=== PATIENT | male | born 1995 | race Hispanic/Latino ===

== ENCOUNTER 2016-04-19 05:27 | Emergency (ER) | payer SELFPAY ==
[2016-04-19 06:37] LABS: ANION GAP 8 MEQ/L (8-16); BLOOD UREA NITROGEN 14 MG/DL (7-18); CALCIUM LEVEL 8.6 MG/DL (8.5-10.1); CARBON DIOXIDE LEVEL 28 MEQ/L (21-32); CHLORIDE LEVEL 106 MEQ/L (98-107); CREATININE FOR GFR 1.04 MG/DL (0.70-1.30); GLOMERULAR FILTRATION RATE > 60.0 (>60); GLUCOSE, FASTING 98 MG/DL (70-105); POTASSIUM SERUM 3.9 MEQ/L (3.5-5.1); SODIUM LEVEL 142 MEQ/L (136-145)
--- NOTE | 2016-04-19 07:50 | REPUSA ---
CLINICAL HISTORY: Abdominal pain. TECHNIQUE: Multiple axial, sagittal and coronal CT images were obtained through the abdomen and pelvi s without administration of oral or IV contrast material. COMMENTS: The liver is of uniform attenuation without mass or defect. There is no intra or extrahepatic biliary ductal dilatation. The spleen is normal. The gallbladder is within normal limits. The pancreas is of normal contour and attenuation characteristics. There is no evidence of adrenal mass. The kidneys are normal in size, shape and configuration. No renal or ureteral calculi are identified. There is no hydroureter or hydronephrosis. There is no evidence for appendicitis. There is no bowel wall thickening. No evidence for small or la rge bowel obstruction. There is no evidence of abdominal ascites or lymphadenopathy. There is no evidence of intrinsic or extrinsic bladder mass. There is no pelvic ascites or lymphadeno pat. Mild diffuse thickening of the bladder. Images of the lung bases show no evidence of pleural or parenchymal mass. There are no pleural effusi ons. The bony structures are free of lytic or blastic lesions. Multilevel degenerative changes are seen in volving the thoracolumbar spine. Scattered calcifications are seen involving the aorta and major branches compatible with atherosclero sis. IMPRESSION: Mild diffuse thickening of the bladder. Findings are suggestive of cystitis. Thank you for your kind referral of this patient.
[2016-04-19] MEDS ORDERED: cefTRIAXone SOD 250 MG VIAL (J0696) As Ordered ONE (08:14)
[2016-04-19] MEDS ORDERED: DOXYCYCLINE HYCLATE 100 MG TAB As Ordered ONE (08:15)
--- NOTE | 2016-04-19 08:44 | EDDOCDS ---
Nurse's Notes [facility] Name: Gene Gallegos Age: 20 yrs Sex: Male : 1995 Arrival Date: 04/19/2016 Time: 05:27 Bed 17 Private MD: Diagnosis: Acute prostatitis Presentation: 04/19 05:31 Presenting complaint: Patient states: per pt for the past few weeks now he has had the tm5 urge to use the bathroom, he has noted blood in his urine also, has had lower back pain also. Adult Sepsis Screening: The patient does not have new or worsening altered mentation. Patient's respiratory rate is less than 22. Systolic blood pressure is greater than 100. Patient has a qSOFA score of 0- Negative Sepsis Screen. Suicide/Homicide risk assessment- the patient denies having any suicidal and/or homicidal ideations and does not present with any other emotional, behavioral or mental health complaints. 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 Transition of care: patient was not received from another setting of care. 05:31 Acuity: TRANG Level 3 tm5 05:31 Method Of Arrival: Walkin/Carried/Asstd tm5 Triage Assessment: 05:33 General: Appears in no apparent distress, Behavior is appropriate for age, cooperative. tm5 Pain: Denies pain. Pt Declines HIV testing. Neurological: No deficits noted. Respiratory: Airway is patent Respiratory effort is even, unlabored, Respiratory pattern is regular, symmetrical. Derm: Skin is pink, warm & dry. Historical: - Allergies: no known allergies; - Home Meds: 1. none - PMHx: none; - The history from nurses notes was reviewed: and I agree with what is documented. - Social history: Smoking status: Patient uses tobacco products, current every day smoker. No barriers to communication noted, The patient speaks fluent Yakut. - Family history: Not pertinent. - : The pt / caregiver states he / she is not on anticoagulants. Home medication list is obtained from the patient. - Hospitalizations: : No recent hospitalization is reported. - Exposure Risk Screening:: None identified. - Immunization history:: All immunizations up-to-date. - Social history:: the patient smokes cigarettes the patient drinks alcohol. Screenin:35 Screening information is obtained from the patient. Fall risk: No risks identified. tm5 Assistance ADL's: requires no assistance with activities of daily living. Abuse/DV Screen: The patient / caregiver reports he/she is: not in a situation that causes fear, pain or injury. Nutritional screening: No deficits noted. Advance Directives: Currently, there is no health care proxy. There is no active DNR order. home support is adequate. Assessment: 05:56 General: Appears in no apparent distress, comfortable, Behavior is cooperative. Pain: mlc Denies pain. Neurological: Level of Consciousness is awake, alert, obeys commands, Oriented to person, place, time. Respiratory: Airway is patent Respiratory effort is even, unlabored, Respiratory pattern is regular. GI: Abdomen is flat, Bowel sounds present X 4 quads. Abd is soft X 4 quads Denies nausea. : Reports urgency since 3 weeks pt reports itching "internally" between testicles and shaft, pt denies discharge/rash. 07:20 General: Appears in no apparent distress, comfortable, Behavior is appropriate for age, ml6 cooperative. Pain: Denies pain. Neurological: No deficits noted. Level of Consciousness is awake, alert, Oriented to person, place, time. Cardiovascular: No deficits noted. Capillary refill < 3 seconds is brisk in bilateral fingers toes. Respiratory: No deficits noted. Airway is patent Respiratory effort is even, unlabored, Respiratory pattern is regular, symmetrical. GI: Abdomen is flat, non- distended Bowel sounds present X 4 quads. Abd is soft and non tender X 4 quads. : Reports urgency. 08:20 Reassessment: Patient appears in no apparent distress at this time. Patient denies pain ml6 at this time. Patient states feeling better. Patient states symptoms have improved. 08:41 General: Appears in no apparent distress, comfortable, Behavior is appropriate for age, ml6 cooperative. Pain: Denies pain. Neurological: No deficits noted. Level of Consciousness is awake, alert, Oriented to person, place, time. Cardiovascular: No deficits noted. Capillary refill < 3 seconds is brisk in bilateral fingers toes. Respiratory: No deficits noted. Airway is patent Respiratory effort is even, unlabored, Respiratory pattern is regular, symmetrical. GI: No deficits noted. Vital Signs: 05:33 BP 133 / 59; Pulse 85; Resp 18; Temp 97.8(O); Pulse Ox 100% ; Weight 72.57 kg; Height 6 tm5 ft. 0 in. (182.88 cm); Pain 0/10; 08:41 BP 128 / 61; Pulse 81; Resp 16; Temp 98.1(O); Pulse Ox 98% on R/A; Pain 0/10; ml6 05:33 Body Mass Index 21.70 (72.57 kg, 182.88 cm) tm5 Vitals: 05:33 Log In Time: April 19, 2016 at 05:34. tm5 06:14 HIV Screen Result: Negative. [facility] [place] ED Course: 05:29 Patient visited by Tori Cornell Reg. hs2 05:29 Patient moved to Waiting hs2 05:33 Triage Initiated tm5 05:33 Family accompanied patient. tm5 05:35 Tereza Pal RN is Primary Nurse. tm5 05:35 Patient moved to 17 tm5 05:55 GC & Chlamydia Amplification Sent. mlc 05:55 Urine Culture Sent. mlc 05:55 Urinalysis Sent. [facility] [place] 05:58 Patient visited by Tereza Pal RN. [facility] 06:04 Basic Metabolic Profile Sent. [facility] [place] 06:05 Inserted saline lock: 20 gauge in right forearm and blood collected. The patient mlc tolerated the procedure well. 06:15 Patient visited by Tereza Pal RN. mlc 06:58 Heri Leavitt, PETER is Primary Nurse. ml6 06:59 Patient visited by Heri Leavitt RN. ml6 06:59 Pola Kaur MD is Attending Physician. pc 07:18 Patient visited by Pola Kaur MD. pc 07:20 The patient / caregiver is instructed regarding the plan of care and ED course. ml6 07:54 Patient visited by Heri Leavitt RN. ml6 08:27 [facility] Payment Agreement was scanned into [employer] and attached to record. lg 08:33 CT ABD & PELVIS: No Contrast Returned. EDMS 08:42 Discontinued IV bleeding controlled, pressure dressing applied, No redness/swelling at ml6 site. No procedures done that require assistance. Administered Medications: 08:08 Drug: cefTRIAXone 250 mg [ceftriaxone 250 mg solution for injection (250 mg)] Route: ml6 IM; Site: left vastus lateralis; 08:43 Follow up: Response: No Adverse Reaction ml6 08:10 Drug: Doxycycline 100 mg [doxycycline hyclate 100 mg tablet (1 tabs)] Route: PO; ml6 Order Results: Lab Order: Urinalysis; SPEC'M 04/19/16 05:39 Test: APPEARANCE, URINE; Value: HAZY; Range: CLEAR; Status: F Test: COLOR, URINE; Value: YELLOW; Range: YELLOW; Status: F Test: PH,URINE; Value: 5.0; Range: 5.0-9.0; Units: UNITS; Status: F Test: SPECIFIC GRAVITY URINE AUTO; Value: 1.019; Range: 1.002-1.035; Status: F Test: PROTEIN, URINE AUTO; Value: NEGATIVE; Range: NEGATIVE; Units: mg/dL; Status: F Test: GLUCOSE, URINE (UA) AUTO; Value: NEGATIVE; Range: NEGATIVE; Units: mg/dL; Status: F Test: KETONE, URINE AUTO; Value: TRACE; Range: NEGATIVE; Abnormal: Above high normal; Units: mg/dL; Status: F Test: UROBILINOGEN, URINE AUTO; Value: 0.2; Range: 0.0-2.0; Units: mg/dL; Status: F Test: BILIRUBIN, URINE AUTO; Value: NEGATIVE; Range: NEGATIVE; Status: F Test: NITRITE, URINE AUTO; Value: NEGATIVE; Range: NEGATIVE; Status: F Test: LEUKOCYTE ESTERASE, URINE AUTO; Value: 2+; Range: NEGATIVE; Abnormal: Above high normal; Status: F Test: BLOOD, URINE BLOOD; Value: NEGATIVE; Range: NEGATIVE; Status: F Test: WBC, URINE AUTO; Value: 158; Range: 0-3; Abnormal: Above high normal; Units: /HPF; Status: F Test: RBC, URINE AUTO; Value: 7; Range: 0-3; Abnormal: Above high normal; Units: /HPF; Status: F Test: BACTERIA, URINE AUTO; Value: NEGATIVE; Range: NEGATIVE; Status: F Test: SQUAMOUS EPITHELIAL CELL UR AU; Value: 0; Range: 0-6; Units: /HPF; Status: F Test: MUCUS, URINE; Value: SMALL; Range: NEGATIVE; Status: F Test: HYALINE CAST, URINE AUTO; Value: 0; Range: 0-1; Units: /LPF; Status: F Lab Order: Basic Metabolic Profile; SPEC'M 04/19/16 06:03 Test: GLUCOSE, FASTING; Value: 98; Range: 70-105; Units: MG/DL; Status: F Test: BLOOD UREA NITROGEN; Value: 14; Range: 7-18; Units: MG/DL; Status: F Test: CREATININE FOR GFR; Value: 1.04; Range: 0.70-1.30; Units: MG/DL; Status: F Test: GLOMERULAR FILTRATION RATE; Value: > 60.0; Range: >60; Status: F Test: SODIUM LEVEL; Value: 142; Range: 136-145; Units: MEQ/L; Status: F Test: POTASSIUM SERUM; Value: 3.9; Range: 3.5-5.1; Units: MEQ/L; Status: F Test: CHLORIDE LEVEL; Value: 106; Range: 98-107; Units: MEQ/L; Status: F Test: CARBON DIOXIDE LEVEL; Value: 28; Range: 21-32; Units: MEQ/L; Status: F Test: ANION GAP; Value: 8; Range: 8-16; Units: MEQ/L; Status: F Test: CALCIUM LEVEL; Value: 8.6; Range: 8.5-10.1; Units: MG/DL; Status: F Test Note: ; Units are mL/min/1.73 m2 Chronic Kidney Disease Staging per NKF: Stage I & II GFR >=60 Normal to Mildly Decreased Stage III GFR 30-59 Moderately Decreased Stage IV GFR 15-29 Severely Decreased Stage V GFR <15 Very Little GFR Left ESRD GFR <15 on MANAGER BUILD[employer] Radiology Order: CT ABD & PELVIS: No Contrast Test: CT ABD & PELVIS: No Contrast REASON FOR EXAMINATION: pyelonephritis; ; CLINICAL HISTORY: Abdominal pain.; TECHNIQUE: Multiple axial, sagittal and coronal CT images were obtained through the abdomen and pelvi; s without administration of oral or IV contrast material.; COMMENTS:; The liver is of uniform attenuation without mass or defect. There is no intra or extrahepatic biliary; ductal dilatation. The spleen is normal. The gallbladder is within normal limits. The pancreas is of; normal contour and attenuation characteristics. There is no evidence of adrenal mass.; The kidneys are normal in size, shape and configuration. No renal or ureteral calculi are identified.; There is no hydroureter or hydronephrosis.; There is no evidence for appendicitis. There is no bowel wall thickening. No evidence for small or la; rge bowel obstruction. There is no evidence of abdominal ascites or lymphadenopathy.; There is no evidence of intrinsic or extrinsic bladder mass. There is no pelvic ascites or lymphadeno; pat.; Mild diffuse thickening of the bladder.; Images of the lung bases show no evidence of pleural or parenchymal mass. There are no pleural effusi; ons.; The bony structures are free of lytic or blastic lesions. Multilevel degenerative changes are seen in; volving the thoracolumbar spine.; Scattered calcifications are seen involving the aorta and major branches compatible with atherosclero; sis.; IMPRESSION:; Mild diffuse thickening of the bladder. Findings are suggestive of cystitis.; Thank you for your kind referral of this patient.; ; Outcome: 07:33 CT Study completed. Property :Personal belongings accompany Pt. ml6 08:06 Discharge ordered by Provider. pc 08:42 Discharge Assessment: patient administered narcotics - no. The following High Risk ml6 Discharge criteria are identified: None. Discharged to home ambulatory, with significant other. Condition: improved. Discharge instructions given to patient, Instructed on discharge instructions, follow up and referral plans. medication usage, safe sex practices, Demonstrated understanding of instructions, medications, Pt was receptive of discharge instructions/ teaching. Prescriptions given X 1. 08:43 Patient left the ED. ml6 Signatures: Dispatcher [employer] EDMS Pola Kaur MD MD pc Ganter, LoriLee, Reg Reg lg Heri Leavitt, RN RN ml6 Tereza Pal RN RN [facility] [place] Tori Cornell, Reg Reg hs2 Sara HernándezRN RN tm5 MTDD
--- NOTE | 2016-04-19 08:44 | EDDOCDS ---
Physician Documentation [facility] Name: Gene Gallegos Age: 20 yrs Sex: Male : 1995 Arrival Date: 04/19/2016 Time: 05:27 Bed 17 Private MD: Disposition: 04/19 08:01 Critical Care: Critical care not applicable. pc Disposition: 04/19/16 08:06 Discharged to Home/Self Care. Impression: Acute prostatitis. - Condition is Stable. - Discharge Instructions: Prostatitis. - Prescriptions for Doxycycline Monohydrate 100 mg Oral Tablet - take 1 tablet by ORAL route every 12 hours for 28 days; 56 tablet. - Medication Reconciliation, Local Pharmacy Hours form. - Follow up: Private Physician; When: Upon returning to your home town; Reason: Recheck today's complaints, Continuance of care. - Problem is an ongoing problem. - Symptoms are unchanged. HPI: 08:01 This 20 yrs old Male presents to ER via Walkin/Carried/Asstd with complaints of Urinary pc Problem. 08:01 The history is obtained from the patient. He has had dysuria for 2-3 weeks, without pc urethral discharge, hematuria, fevers or chills. He has low back pain at times but not daily or consistently. At their worst, the symptoms were mild. In the emergency department, the symptoms are unchanged. The patient has not experienced similar symptoms in the past. The patient has not recently seen a physician. Historical: - Allergies: no known allergies; - Home Meds: 1. none - PMHx: none; - The history from nurses notes was reviewed: and I agree with what is documented. - Social history: Smoking status: Patient uses tobacco products, current every day smoker. No barriers to communication noted, The patient speaks fluent Amharic. - Family history: Not pertinent. - : The pt / caregiver states he / she is not on anticoagulants. Home medication list is obtained from the patient. - Hospitalizations: : No recent hospitalization is reported. - Exposure Risk Screening:: None identified. - Immunization history:: All immunizations up-to-date. - Social history:: the patient smokes cigarettes the patient drinks alcohol. ROS: 08:01 All systems are negative except as listed. pc Exam: 08:01 General Appearance: no acute distress, alert. pc 08:01 Respiratory: no respiratory distress, normal breath sounds. 08:01 CVS: regular pulse rate, regular rhythm, normal S1 and S2, no murmurs, strong peripheral pulses. 08:01 Abdomen: soft, non-tender, no organomegaly, normal bowel sounds. 08:01 Abdomen: no masses appreciated, no hernias palpated with/without gravity or Valsalva Rectal exam: prostate is tender. 08:01 Back: normal inspection. 08:01 : bladder is non-distended, non-tender. 08:01 Extremities: The extremities have a grossly normal appearance. Vital Signs: 05:33 BP 133 / 59; Pulse 85; Resp 18; Temp 97.8(O); Pulse Ox 100% ; Weight 72.57 kg / 159.99 tm5 lbs; Height 6 ft. 0 in. (182.88 cm); Pain 0/10; 08:41 BP 128 / 61; Pulse 81; Resp 16; Temp 98.1(O); Pulse Ox 98% on R/A; Pain 0/10; ml6 05:33 Body Mass Index 21.70 (72.57 kg, 182.88 cm) tm5 MDM: 05:44 IV Saline Lock ordered. fg 05:44 Urine Culture Ordered. EDMS 05:45 Urinalysis Ordered. EDMS 05:45 Basic Metabolic Profile Ordered. EDMS 05:55 GC & Chlamydia Amplification Ordered. EDMS 05:55 HIV Screen, Nursing ordered. mlc 07:00 Urinalysis Reviewed. pc 07:00 Basic Metabolic Profile Reviewed. pc 07:02 CT ABD & PELVIS: No Contrast Ordered. EDMS 07:40 Financial registration complete. lg 08:01 Differential Diagnosis: dysuria r/o STD/prostatitis/UTI. Plan: labs, CT. Data reviewed: old medical records, vital signs, nurses notes, lab test results, all radiology studies and available results. Test interpretation: LAB - all labs as ordered have been reviewed, interpreted and considered in the overall management of the clinical presentation; interpreted by Radiologist and personally reviewed, Abdomen/Pelvis CT; cystitis suspected. The patient has been re-examined and re-evaluated. There is no appreciated change of the patient's symptoms at this time, or expected emergently . Disposition: The historical points, examination findings, and any diagnostic results supporting the provided diagnosis, were discussed with the patient or legal guardian. The need for outpatient follow up with the provider listed on their discharge instructions was discussed. They were encouraged to return to [facility], or the nearest ED, if symptoms worsen/persist, or for any other questions/concerns. 08:06 cefTRIAXone 250 mg IM once ordered. 08:06 Doxycycline 100 mg PO once ordered. 08:27 [facility] Payment Agreement was scanned into [employer] and attached to record. lg Administered Medications: 08:08 Drug: cefTRIAXone 250 mg [ceftriaxone 250 mg solution for injection (250 mg)] Route: ml6 IM; Site: left vastus lateralis; 08:43 Follow up: Response: No Adverse Reaction ml6 08:10 Drug: Doxycycline 100 mg [doxycycline hyclate 100 mg tablet (1 tabs)] Route: PO; ml6 Signatures: Dispatcher [employer] EDMS Pola Kaur MD MD pc Kevin King, Reg Reg lg Heri Leavitt RN RN ml6 Tereza Pal RN RN [facility] Carina Gastelum MD MD Sara Hernández RN RN tm5 The chart was reviewed and I authenticate all verbal orders and agree with the evaluation and treatment provided.Attachments: 08:27 [facility] Payment Agreement lg MTDD
--- NOTE | 2016-04-21 09:43 | EDDOCDS ---
Nurse's Notes [facility] Name: Gene Gallegos Age: 20 yrs Sex: Male : 1995 Arrival Date: 04/19/2016 Time: 05:27 Bed 17 Private MD: Diagnosis: Acute prostatitis Presentation: 04/19 05:31 Presenting complaint: Patient states: per pt for the past few weeks now he has had the tm5 urge to use the bathroom, he has noted blood in his urine also, has had lower back pain also. Adult Sepsis Screening: The patient does not have new or worsening altered mentation. Patient's respiratory rate is less than 22. Systolic blood pressure is greater than 100. Patient has a qSOFA score of 0- Negative Sepsis Screen. Suicide/Homicide risk assessment- the patient denies having any suicidal and/or homicidal ideations and does not present with any other emotional, behavioral or mental health complaints. Status: Patient is not a service loss control consultant or dependent. Transition of care: patient was not received from another setting of care. 05:31 Acuity: TRANG Level 3 tm5 05:31 Method Of Arrival: Walkin/Carried/Asstd tm5 Triage Assessment: 05:33 General: Appears in no apparent distress, Behavior is appropriate for age, cooperative. tm5 Pain: Denies pain. Pt Declines HIV testing. Neurological: No deficits noted. Respiratory: Airway is patent Respiratory effort is even, unlabored, Respiratory pattern is regular, symmetrical. Derm: Skin is pink, warm & dry. Historical: - Allergies: no known allergies; - Home Meds: 1. none - PMHx: none; - The history from nurses notes was reviewed: and I agree with what is documented. - Social history: Smoking status: Patient uses tobacco products, current every day smoker. No barriers to communication noted, The patient speaks fluent [place]. - Family history: Not pertinent. - : The pt / caregiver states he / she is not on anticoagulants. Home medication list is obtained from the patient. - Hospitalizations: : No recent hospitalization is reported. - Exposure Risk Screening:: None identified. - Immunization history:: All immunizations up-to-date. - Social history:: the patient smokes cigarettes the patient drinks alcohol. Screenin:35 Screening information is obtained from the patient. Fall risk: No risks identified. tm5 Assistance ADL's: requires no assistance with activities of daily living. Abuse/DV Screen: The patient / caregiver reports he/she is: not in a situation that causes fear, pain or injury. Nutritional screening: No deficits noted. Advance Directives: Currently, there is no health care proxy. There is no active DNR order. home support is adequate. Assessment: 05:56 General: Appears in no apparent distress, comfortable, Behavior is cooperative. Pain: mlc Denies pain. Neurological: Level of Consciousness is awake, alert, obeys commands, Oriented to person, place, time. Respiratory: Airway is patent Respiratory effort is even, unlabored, Respiratory pattern is regular. GI: Abdomen is flat, Bowel sounds present X 4 quads. Abd is soft X 4 quads Denies nausea. : Reports urgency since 3 weeks pt reports itching "internally" between testicles and shaft, pt denies discharge/rash. 07:20 General: Appears in no apparent distress, comfortable, Behavior is appropriate for age, ml6 cooperative. Pain: Denies pain. Neurological: No deficits noted. Level of Consciousness is awake, alert, Oriented to person, place, time. Cardiovascular: No deficits noted. Capillary refill < 3 seconds is brisk in bilateral fingers toes. Respiratory: No deficits noted. Airway is patent Respiratory effort is even, unlabored, Respiratory pattern is regular, symmetrical. GI: Abdomen is flat, non- distended Bowel sounds present X 4 quads. Abd is soft and non tender X 4 quads. : Reports urgency. 08:20 Reassessment: Patient appears in no apparent distress at this time. Patient denies pain ml6 at this time. Patient states feeling better. Patient states symptoms have improved. 08:41 General: Appears in no apparent distress, comfortable, Behavior is appropriate for age, ml6 cooperative. Pain: Denies pain. Neurological: No deficits noted. Level of Consciousness is awake, alert, Oriented to person, place, time. Cardiovascular: No deficits noted. Capillary refill < 3 seconds is brisk in bilateral fingers toes. Respiratory: No deficits noted. Airway is patent Respiratory effort is even, unlabored, Respiratory pattern is regular, symmetrical. GI: No deficits noted. Vital Signs: 05:33 BP 133 / 59; Pulse 85; Resp 18; Temp 97.8(O); Pulse Ox 100% ; Weight 72.57 kg; Height 6 tm5 ft. 0 in. (182.88 cm); Pain 0/10; 08:41 BP 128 / 61; Pulse 81; Resp 16; Temp 98.1(O); Pulse Ox 98% on R/A; Pain 0/10; ml6 05:33 Body Mass Index 21.70 (72.57 kg, 182.88 cm) tm5 Vitals: 05:33 Log In Time: April 19, 2016 at 05:34. tm5 06:14 HIV Screen Result: Negative. [facility] ED Course: 05:29 Patient visited by Tori Cornell Reg. hs2 05:29 Patient moved to Waiting hs2 05:33 Triage Initiated tm5 05:33 Family accompanied patient. tm5 05:35 Tereza Pal RN is Primary Nurse. tm5 05:35 Patient moved to 17 tm5 05:55 GC & Chlamydia Amplification Sent. mlc 05:55 Urine Culture Sent. mlc 05:55 Urinalysis Sent. [facility] 05:58 Patient visited by Tereza Pal RN. [facility] 06:04 Basic Metabolic Profile Sent. [facility] 06:05 Inserted saline lock: 20 gauge in right forearm and blood collected. The patient mlc tolerated the procedure well. 06:15 Patient visited by Tereza Pal RN. mlc 06:58 Heri Leavitt, PETER is Primary Nurse. ml6 06:59 Patient visited by Heri Leavitt RN. ml6 06:59 Pola Kaur MD is Attending Physician. pc 07:18 Patient visited by Pola Kaur MD. pc 07:20 The patient / caregiver is instructed regarding the plan of care and ED course. ml6 07:54 Patient visited by Heri Leavitt RN. ml6 08:27 [facility] Payment Agreement was scanned into [employer] and attached to record. lg 08:33 CT ABD & PELVIS: No Contrast Returned. EDMS 08:42 Discontinued IV bleeding controlled, pressure dressing applied, No redness/swelling at ml6 site. No procedures done that require assistance. Administered Medications: 08:08 Drug: cefTRIAXone 250 mg [ceftriaxone 250 mg solution for injection (250 mg)] Route: ml6 IM; Site: left vastus lateralis; 08:43 Follow up: Response: No Adverse Reaction ml6 08:10 Drug: Doxycycline 100 mg [doxycycline hyclate 100 mg tablet (1 tabs)] Route: PO; ml6 Order Results: Lab Order: Urinalysis; SPEC'M 04/19/16 05:39 Test: APPEARANCE, URINE; Value: HAZY; Range: CLEAR; Status: F Test: COLOR, URINE; Value: YELLOW; Range: YELLOW; Status: F Test: PH,URINE; Value: 5.0; Range: 5.0-9.0; Units: UNITS; Status: F Test: SPECIFIC GRAVITY URINE AUTO; Value: 1.019; Range: 1.002-1.035; Status: F Test: PROTEIN, URINE AUTO; Value: NEGATIVE; Range: NEGATIVE; Units: mg/dL; Status: F Test: GLUCOSE, URINE (UA) AUTO; Value: NEGATIVE; Range: NEGATIVE; Units: mg/dL; Status: F Test: KETONE, URINE AUTO; Value: TRACE; Range: NEGATIVE; Abnormal: Above high normal; Units: mg/dL; Status: F Test: UROBILINOGEN, URINE AUTO; Value: 0.2; Range: 0.0-2.0; Units: mg/dL; Status: F Test: BILIRUBIN, URINE AUTO; Value: NEGATIVE; Range: NEGATIVE; Status: F Test: NITRITE, URINE AUTO; Value: NEGATIVE; Range: NEGATIVE; Status: F Test: LEUKOCYTE ESTERASE, URINE AUTO; Value: 2+; Range: NEGATIVE; Abnormal: Above high normal; Status: F Test: BLOOD, URINE BLOOD; Value: NEGATIVE; Range: NEGATIVE; Status: F Test: WBC, URINE AUTO; Value: 158; Range: 0-3; Abnormal: Above high normal; Units: /HPF; Status: F Test: RBC, URINE AUTO; Value: 7; Range: 0-3; Abnormal: Above high normal; Units: /HPF; Status: F Test: BACTERIA, URINE AUTO; Value: NEGATIVE; Range: NEGATIVE; Status: F Test: SQUAMOUS EPITHELIAL CELL UR AU; Value: 0; Range: 0-6; Units: /HPF; Status: F Test: MUCUS, URINE; Value: SMALL; Range: NEGATIVE; Status: F Test: HYALINE CAST, URINE AUTO; Value: 0; Range: 0-1; Units: /LPF; Status: F Lab Order: Urine Culture; SPEC'M 04/19/16 05:39 Test: URINE CULTURE; Value: <EXTERNAL COMMENT eCWMed> FULL REPORT IN LAB NOTES (eCW and Medent).; Status: F Test: URINE CULTURE; Value: URINE CULTURE RESULT NO GROWTH; Status: F Lab Order: Basic Metabolic Profile; SPEC'M 04/19/16 06:03 Test: GLUCOSE, FASTING; Value: 98; Range: 70-105; Units: MG/DL; Status: F Test: BLOOD UREA NITROGEN; Value: 14; Range: 7-18; Units: MG/DL; Status: F Test: CREATININE FOR GFR; Value: 1.04; Range: 0.70-1.30; Units: MG/DL; Status: F Test: GLOMERULAR FILTRATION RATE; Value: > 60.0; Range: >60; Status: F Test: SODIUM LEVEL; Value: 142; Range: 136-145; Units: MEQ/L; Status: F Test: POTASSIUM SERUM; Value: 3.9; Range: 3.5-5.1; Units: MEQ/L; Status: F Test: CHLORIDE LEVEL; Value: 106; Range: 98-107; Units: MEQ/L; Status: F Test: CARBON DIOXIDE LEVEL; Value: 28; Range: 21-32; Units: MEQ/L; Status: F Test: ANION GAP; Value: 8; Range: 8-16; Units: MEQ/L; Status: F Test: CALCIUM LEVEL; Value: 8.6; Range: 8.5-10.1; Units: MG/DL; Status: F Test Note: ; Units are mL/min/1.73 m2 Chronic Kidney Disease Staging per NKF: Stage I & II GFR >=60 Normal to Mildly Decreased Stage III GFR 30-59 Moderately Decreased Stage IV GFR 15-29 Severely Decreased Stage V GFR <15 Very Little GFR Left ESRD GFR <15 on 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 Lab Order: GC & Chlamydia Amplification; SPEC'M 04/19/16 05:39 Test: CHLAMYDIA DNA AMPLIFICATION; Value: POSITIVE; Range: NEGATIVE; Abnormal: Above high normal; Status: F Test: GC DNA AMPLIFICATION; Value: NEGATIVE; Range: NEGATIVE; Status: F Radiology Order: CT ABD & PELVIS: No Contrast Test: CT ABD & PELVIS: No Contrast REASON FOR EXAMINATION: pyelonephritis; ; CLINICAL HISTORY: Abdominal pain.; TECHNIQUE: Multiple axial, sagittal and coronal CT images were obtained through the abdomen and pelvi; s without administration of oral or IV contrast material.; COMMENTS:; The liver is of uniform attenuation without mass or defect. There is no intra or extrahepatic biliary; ductal dilatation. The spleen is normal. The gallbladder is within normal limits. The pancreas is of; normal contour and attenuation characteristics. There is no evidence of adrenal mass.; The kidneys are normal in size, shape and configuration. No renal or ureteral calculi are identified.; There is no hydroureter or hydronephrosis.; There is no evidence for appendicitis. There is no bowel wall thickening. No evidence for small or la; rge bowel obstruction. There is no evidence of abdominal ascites or lymphadenopathy.; There is no evidence of intrinsic or extrinsic bladder mass. There is no pelvic ascites or lymphadeno; pat.; Mild diffuse thickening of the bladder.; Images of the lung bases show no evidence of pleural or parenchymal mass. There are no pleural effusi; ons.; The bony structures are free of lytic or blastic lesions. Multilevel degenerative changes are seen in; volving the thoracolumbar spine.; Scattered calcifications are seen involving the aorta and major branches compatible with atherosclero; sis.; IMPRESSION:; Mild diffuse thickening of the bladder. Findings are suggestive of cystitis.; Thank you for your kind referral of this patient.; ; Outcome: 07:33 CT Study completed. Property :Personal belongings accompany Pt. ml6 08:06 Discharge ordered by Provider. pc 08:42 Discharge Assessment: patient administered narcotics - no. The following High Risk ml6 Discharge criteria are identified: None. Discharged to home ambulatory, with significant other. Condition: improved. Discharge instructions given to patient, Instructed on discharge instructions, follow up and referral plans. medication usage, safe sex practices, Demonstrated understanding of instructions, medications, Pt was receptive of discharge instructions/ teaching. Prescriptions given X 1. 08:43 Patient left the ED. ml6 Signatures: Dispatcher [employer] EDMS Pola Kaur MD MD pc Kevin King, Reg Reg lg Heri Leavitt RN RN ml6 Tereza Pal RN RN [facility] Tori Cornell, Reg Reg hs2 Sara Hernández RN RN tm5 Chart Complete MTDD
--- NOTE | 2016-04-21 09:43 | EDDOCDS ---
Physician Documentation [facility] Name: Gene Gallegos Age: 20 yrs Sex: Male : 1995 Arrival Date: 04/19/2016 Time: 05:27 Bed 17 Private MD: Disposition: 04/19 08:01 Critical Care: Critical care not applicable. pc Disposition: 04/19/16 08:06 Discharged to Home/Self Care. Impression: Acute prostatitis. - Condition is Stable. - Discharge Instructions: Prostatitis. - Prescriptions for Doxycycline Monohydrate 100 mg Oral Tablet - take 1 tablet by ORAL route every 12 hours for 28 days; 56 tablet. - Medication Reconciliation, Local Pharmacy Hours form. - Follow up: Private Physician; When: Upon returning to your home town; Reason: Recheck today's complaints, Continuance of care. - Problem is an ongoing problem. - Symptoms are unchanged. HPI: 08:01 This 20 yrs old Male presents to ER via Walkin/Carried/Asstd with complaints of Urinary pc Problem. 08:01 The history is obtained from the patient. He has had dysuria for 2-3 weeks, without pc urethral discharge, hematuria, fevers or chills. He has low back pain at times but not daily or consistently. At their worst, the symptoms were mild. In the emergency department, the symptoms are unchanged. The patient has not experienced similar symptoms in the past. The patient has not recently seen a physician. Historical: - Allergies: no known allergies; - Home Meds: 1. none - PMHx: none; - The history from nurses notes was reviewed: and I agree with what is documented. - Social history: Smoking status: Patient uses tobacco products, current every day smoker. No barriers to communication noted, The patient speaks fluent Serbian. - Family history: Not pertinent. - : The pt / caregiver states he / she is not on anticoagulants. Home medication list is obtained from the patient. - Hospitalizations: : No recent hospitalization is reported. - Exposure Risk Screening:: None identified. - Immunization history:: All immunizations up-to-date. - Social history:: the patient smokes cigarettes the patient drinks alcohol. ROS: 08:01 All systems are negative except as listed. pc Exam: 08:01 General Appearance: no acute distress, alert. pc 08:01 Respiratory: no respiratory distress, normal breath sounds. 08:01 CVS: regular pulse rate, regular rhythm, normal S1 and S2, no murmurs, strong peripheral pulses. 08:01 Abdomen: soft, non-tender, no organomegaly, normal bowel sounds. 08:01 Abdomen: no masses appreciated, no hernias palpated with/without gravity or Valsalva Rectal exam: prostate is tender. 08:01 Back: normal inspection. 08:01 : bladder is non-distended, non-tender. 08:01 Extremities: The extremities have a grossly normal appearance. Vital Signs: 05:33 BP 133 / 59; Pulse 85; Resp 18; Temp 97.8(O); Pulse Ox 100% ; Weight 72.57 kg / 159.99 tm5 lbs; Height 6 ft. 0 in. (182.88 cm); Pain 0/10; 08:41 BP 128 / 61; Pulse 81; Resp 16; Temp 98.1(O); Pulse Ox 98% on R/A; Pain 0/10; ml6 05:33 Body Mass Index 21.70 (72.57 kg, 182.88 cm) tm5 MDM: 05:44 IV Saline Lock ordered. fg 05:44 Urine Culture Ordered. EDMS 05:45 Urinalysis Ordered. EDMS 05:45 Basic Metabolic Profile Ordered. EDMS 05:55 GC & Chlamydia Amplification Ordered. EDMS 05:55 HIV Screen, Nursing ordered. mlc 07:00 Urinalysis Reviewed. pc 07:00 Basic Metabolic Profile Reviewed. pc 07:02 CT ABD & PELVIS: No Contrast Ordered. EDMS 07:40 Financial registration complete. lg 08:01 Differential Diagnosis: dysuria r/o STD/prostatitis/UTI. Plan: labs, CT. Data reviewed: old medical records, vital signs, nurses notes, lab test results, all radiology studies and available results. Test interpretation: LAB - all labs as ordered have been reviewed, interpreted and considered in the overall management of the clinical presentation; interpreted by Radiologist and personally reviewed, Abdomen/Pelvis CT; cystitis suspected. The patient has been re-examined and re-evaluated. There is no appreciated change of the patient's symptoms at this time, or expected emergently . Disposition: The historical points, examination findings, and any diagnostic results supporting the provided diagnosis, were discussed with the patient or legal guardian. The need for outpatient follow up with the provider listed on their discharge instructions was discussed. They were encouraged to return to [facility], or the nearest ED, if symptoms worsen/persist, or for any other questions/concerns. 08:06 cefTRIAXone 250 mg IM once ordered. 08:06 Doxycycline 100 mg PO once ordered. 08:27 [facility] Payment Agreement was scanned into [email or web address] and attached to record. lg Administered Medications: 08:08 Drug: cefTRIAXone 250 mg [ceftriaxone 250 mg solution for injection (250 mg)] Route: ml6 IM; Site: left vastus lateralis; 08:43 Follow up: Response: No Adverse Reaction ml6 08:10 Drug: Doxycycline 100 mg [doxycycline hyclate 100 mg tablet (1 tabs)] Route: PO; ml6 Signatures: Dispatcher [employer] EDMS Pola Kaur MD MD pc Kevin King, Reg Reg lg Heri Leavitt RN RN ml6 Tereza Pal RN RN [facility] Carina Gastelum MD MD Sara Hernández RN RN tm5 The chart was reviewed and I authenticate all verbal orders and agree with the evaluation and treatment provided.Attachments: 08:27 [facility] Payment Agreement lg Chart Complete MTDD
--- NOTE | 2016-04-21 09:43 | EDDOCDS ---
Physician Documentation [facility] Name: Gene Gallegos Age: 20 yrs Sex: Male : 1995 Arrival Date: 04/19/2016 Time: 05:27 Bed 17 Private MD: Disposition: 04/19 08:01 Critical Care: Critical care not applicable. pc Disposition: 04/19/16 08:06 Discharged to Home/Self Care. Impression: Acute prostatitis. - Condition is Stable. - Discharge Instructions: Prostatitis. - Prescriptions for Doxycycline Monohydrate 100 mg Oral Tablet - take 1 tablet by ORAL route every 12 hours for 28 days; 56 tablet. - Medication Reconciliation, Local Pharmacy Hours form. - Follow up: Private Physician; When: Upon returning to your home town; Reason: Recheck today's complaints, Continuance of care. - Problem is an ongoing problem. - Symptoms are unchanged. HPI: 08:01 This 20 yrs old Male presents to ER via Walkin/Carried/Asstd with complaints of Urinary pc Problem. 08:01 The history is obtained from the patient. He has had dysuria for 2-3 weeks, without pc urethral discharge, hematuria, fevers or chills. He has low back pain at times but not daily or consistently. At their worst, the symptoms were mild. In the emergency department, the symptoms are unchanged. The patient has not experienced similar symptoms in the past. The patient has not recently seen a physician. Historical: - Allergies: no known allergies; - Home Meds: 1. none - PMHx: none; - The history from nurses notes was reviewed: and I agree with what is documented. - Social history: Smoking status: Patient uses tobacco products, current every day smoker. No barriers to communication noted, The patient speaks fluent Yakut. - Family history: Not pertinent. - : The pt / caregiver states he / she is not on anticoagulants. Home medication list is obtained from the patient. - Hospitalizations: : No recent hospitalization is reported. - Exposure Risk Screening:: None identified. - Immunization history:: All immunizations up-to-date. - Social history:: the patient smokes cigarettes the patient drinks alcohol. ROS: 08:01 All systems are negative except as listed. pc Exam: 08:01 General Appearance: no acute distress, alert. pc 08:01 Respiratory: no respiratory distress, normal breath sounds. 08:01 CVS: regular pulse rate, regular rhythm, normal S1 and S2, no murmurs, strong peripheral pulses. 08:01 Abdomen: soft, non-tender, no organomegaly, normal bowel sounds. 08:01 Abdomen: no masses appreciated, no hernias palpated with/without gravity or Valsalva Rectal exam: prostate is tender. 08:01 Back: normal inspection. 08:01 : bladder is non-distended, non-tender. 08:01 Extremities: The extremities have a grossly normal appearance. Vital Signs: 05:33 BP 133 / 59; Pulse 85; Resp 18; Temp 97.8(O); Pulse Ox 100% ; Weight 72.57 kg / 159.99 tm5 lbs; Height 6 ft. 0 in. (182.88 cm); Pain 0/10; 08:41 BP 128 / 61; Pulse 81; Resp 16; Temp 98.1(O); Pulse Ox 98% on R/A; Pain 0/10; ml6 05:33 Body Mass Index 21.70 (72.57 kg, 182.88 cm) tm5 MDM: 05:44 IV Saline Lock ordered. fg 05:44 Urine Culture Ordered. EDMS 05:45 Urinalysis Ordered. EDMS 05:45 Basic Metabolic Profile Ordered. EDMS 05:55 GC & Chlamydia Amplification Ordered. EDMS 05:55 HIV Screen, Nursing ordered. mlc 07:00 Urinalysis Reviewed. pc 07:00 Basic Metabolic Profile Reviewed. pc 07:02 CT ABD & PELVIS: No Contrast Ordered. EDMS 07:40 Financial registration complete. lg 08:01 Differential Diagnosis: dysuria r/o STD/prostatitis/UTI. Plan: labs, CT. Data reviewed: old medical records, vital signs, nurses notes, lab test results, all radiology studies and available results. Test interpretation: LAB - all labs as ordered have been reviewed, interpreted and considered in the overall management of the clinical presentation; interpreted by Radiologist and personally reviewed, Abdomen/Pelvis CT; cystitis suspected. The patient has been re-examined and re-evaluated. There is no appreciated change of the patient's symptoms at this time, or expected emergently . Disposition: The historical points, examination findings, and any diagnostic results supporting the provided diagnosis, were discussed with the patient or legal guardian. The need for outpatient follow up with the provider listed on their discharge instructions was discussed. They were encouraged to return to [facility], or the nearest ED, if symptoms worsen/persist, or for any other questions/concerns. 08:06 cefTRIAXone 250 mg IM once ordered. 08:06 Doxycycline 100 mg PO once ordered. 08:27 [facility] Payment Agreement was scanned into [employer]r and attached to record. lg Administered Medications: 08:08 Drug: cefTRIAXone 250 mg [ceftriaxone 250 mg solution for injection (250 mg)] Route: ml6 IM; Site: left vastus lateralis; 08:43 Follow up: Response: No Adverse Reaction ml6 08:10 Drug: Doxycycline 100 mg [doxycycline hyclate 100 mg tablet (1 tabs)] Route: PO; ml6 Signatures: Dispatcher [employer] EDMS Pola Kaur MD MD pc Kevin King, Reg Reg lg Heri Leavitt RN RN ml6 Tereza Pal RN RN [facility] Carina Gastelum MD MD Sara Hernández RN RN tm5 The chart was reviewed and I authenticate all verbal orders and agree with the evaluation and treatment provided.Attachments: 08:27 [facility] Payment Agreement lg Chart Complete MTDD
--- NOTE | 2016-04-23 16:06 | EDDOCDS ---
Nurse's Notes [facility] Name: Gene Gallegos Age: 20 yrs Sex: Male : 1995 Arrival Date: 04/19/2016 Time: 05:27 Bed 17 Private MD: Diagnosis: Acute prostatitis Presentation: 04/19 05:31 Presenting complaint: Patient states: per pt for the past few weeks now he has had the tm5 urge to use the bathroom, he has noted blood in his urine also, has had lower back pain also. Adult Sepsis Screening: The patient does not have new or worsening altered mentation. Patient's respiratory rate is less than 22. Systolic blood pressure is greater than 100. Patient has a qSOFA score of 0- Negative Sepsis Screen. Suicide/Homicide risk assessment- the patient denies having any suicidal and/or homicidal ideations and does not present with any other emotional, behavioral or mental health complaints. Status: Patient is not a special services coordinator or dependent. Transition of care: patient was not received from another setting of care. 05:31 Acuity: TRANG Level 3 tm5 05:31 Method Of Arrival: Walkin/Carried/Asstd tm5 Triage Assessment: 05:33 General: Appears in no apparent distress, Behavior is appropriate for age, cooperative. tm5 Pain: Denies pain. Pt Declines HIV testing. Neurological: No deficits noted. Respiratory: Airway is patent Respiratory effort is even, unlabored, Respiratory pattern is regular, symmetrical. Derm: Skin is pink, warm & dry. Historical: - Allergies: no known allergies; - Home Meds: 1. none - PMHx: none; - The history from nurses notes was reviewed: and I agree with what is documented. - Social history: Smoking status: Patient uses tobacco products, current every day smoker. No barriers to communication noted, The patient speaks fluent Indonesian. - Family history: Not pertinent. - : The pt / caregiver states he / she is not on anticoagulants. Home medication list is obtained from the patient. - Hospitalizations: : No recent hospitalization is reported. - Exposure Risk Screening:: None identified. - Immunization history:: All immunizations up-to-date. - Social history:: the patient smokes cigarettes the patient drinks alcohol. Screenin:35 Screening information is obtained from the patient. Fall risk: No risks identified. tm5 Assistance ADL's: requires no assistance with activities of daily living. Abuse/DV Screen: The patient / caregiver reports he/she is: not in a situation that causes fear, pain or injury. Nutritional screening: No deficits noted. Advance Directives: Currently, there is no health care proxy. There is no active DNR order. home support is adequate. Assessment: 05:56 General: Appears in no apparent distress, comfortable, Behavior is cooperative. Pain: mlc Denies pain. Neurological: Level of Consciousness is awake, alert, obeys commands, Oriented to person, place, time. Respiratory: Airway is patent Respiratory effort is even, unlabored, Respiratory pattern is regular. GI: Abdomen is flat, Bowel sounds present X 4 quads. Abd is soft X 4 quads Denies nausea. : Reports urgency since 3 weeks pt reports itching "internally" between testicles and shaft, pt denies discharge/rash. 07:20 General: Appears in no apparent distress, comfortable, Behavior is appropriate for age, ml6 cooperative. Pain: Denies pain. Neurological: No deficits noted. Level of Consciousness is awake, alert, Oriented to person, place, time. Cardiovascular: No deficits noted. Capillary refill < 3 seconds is brisk in bilateral fingers toes. Respiratory: No deficits noted. Airway is patent Respiratory effort is even, unlabored, Respiratory pattern is regular, symmetrical. GI: Abdomen is flat, non- distended Bowel sounds present X 4 quads. Abd is soft and non tender X 4 quads. : Reports urgency. 08:20 Reassessment: Patient appears in no apparent distress at this time. Patient denies pain ml6 at this time. Patient states feeling better. Patient states symptoms have improved. 08:41 General: Appears in no apparent distress, comfortable, Behavior is appropriate for age, ml6 cooperative. Pain: Denies pain. Neurological: No deficits noted. Level of Consciousness is awake, alert, Oriented to person, place, time. Cardiovascular: No deficits noted. Capillary refill < 3 seconds is brisk in bilateral fingers toes. Respiratory: No deficits noted. Airway is patent Respiratory effort is even, unlabored, Respiratory pattern is regular, symmetrical. GI: No deficits noted. Vital Signs: 05:33 BP 133 / 59; Pulse 85; Resp 18; Temp 97.8(O); Pulse Ox 100% ; Weight 72.57 kg; Height 6 tm5 ft. 0 in. (182.88 cm); Pain 0/10; 08:41 BP 128 / 61; Pulse 81; Resp 16; Temp 98.1(O); Pulse Ox 98% on R/A; Pain 0/10; ml6 05:33 Body Mass Index 21.70 (72.57 kg, 182.88 cm) tm5 Vitals: 05:33 Log In Time: April 19, 2016 at 05:34. tm5 06:14 HIV Screen Result: Negative. [facility] [place] Course: 05:29 Patient visited by Tori Cornell Reg. hs2 05:29 Patient moved to Waiting hs2 05:33 Triage Initiated tm5 05:33 Family accompanied patient. tm5 05:35 Tereza Pal RN is Primary Nurse. tm5 05:35 Patient moved to 17 tm5 05:55 GC & Chlamydia Amplification Sent. mlc 05:55 Urine Culture Sent. mlc 05:55 Urinalysis Sent. [facility] [place] 05:58 Patient visited by Tereza Pal RN. [facility] [place] 06:04 Basic Metabolic Profile Sent. [facility] [place] 06:05 Inserted saline lock: 20 gauge in right forearm and blood collected. The patient mlc tolerated the procedure well. 06:15 Patient visited by Tereza Pal RN. mlc 06:58 Heri Leavitt, PETER is Primary Nurse. ml6 06:59 Patient visited by Heri Leavitt RN. ml6 06:59 Pola Kaur MD is Attending Physician. pc 07:18 Patient visited by Pola Kaur MD. pc 07:20 The patient / caregiver is instructed regarding the plan of care and ED course. ml6 07:54 Patient visited by Heri Leavitt RN. ml6 08:27 [facility] Payment Agreement was scanned into [employer] and attached to record. lg 08:33 CT ABD & PELVIS: No Contrast Returned. EDMS 08:42 Discontinued IV bleeding controlled, pressure dressing applied, No redness/swelling at ml6 site. No procedures done that require assistance. Administered Medications: 08:08 Drug: cefTRIAXone 250 mg [ceftriaxone 250 mg solution for injection (250 mg)] Route: ml6 IM; Site: left vastus lateralis; 08:43 Follow up: Response: No Adverse Reaction ml6 08:10 Drug: Doxycycline 100 mg [doxycycline hyclate 100 mg tablet (1 tabs)] Route: PO; ml6 Order Results: Lab Order: Urinalysis; SPEC'M 04/19/16 05:39 Test: APPEARANCE, URINE; Value: HAZY; Range: CLEAR; Status: F Test: COLOR, URINE; Value: YELLOW; Range: YELLOW; Status: F Test: PH,URINE; Value: 5.0; Range: 5.0-9.0; Units: UNITS; Status: F Test: SPECIFIC GRAVITY URINE AUTO; Value: 1.019; Range: 1.002-1.035; Status: F Test: PROTEIN, URINE AUTO; Value: NEGATIVE; Range: NEGATIVE; Units: mg/dL; Status: F Test: GLUCOSE, URINE (UA) AUTO; Value: NEGATIVE; Range: NEGATIVE; Units: mg/dL; Status: F Test: KETONE, URINE AUTO; Value: TRACE; Range: NEGATIVE; Abnormal: Above high normal; Units: mg/dL; Status: F Test: UROBILINOGEN, URINE AUTO; Value: 0.2; Range: 0.0-2.0; Units: mg/dL; Status: F Test: BILIRUBIN, URINE AUTO; Value: NEGATIVE; Range: NEGATIVE; Status: F Test: NITRITE, URINE AUTO; Value: NEGATIVE; Range: NEGATIVE; Status: F Test: LEUKOCYTE ESTERASE, URINE AUTO; Value: 2+; Range: NEGATIVE; Abnormal: Above high normal; Status: F Test: BLOOD, URINE BLOOD; Value: NEGATIVE; Range: NEGATIVE; Status: F Test: WBC, URINE AUTO; Value: 158; Range: 0-3; Abnormal: Above high normal; Units: /HPF; Status: F Test: RBC, URINE AUTO; Value: 7; Range: 0-3; Abnormal: Above high normal; Units: /HPF; Status: F Test: BACTERIA, URINE AUTO; Value: NEGATIVE; Range: NEGATIVE; Status: F Test: SQUAMOUS EPITHELIAL CELL UR AU; Value: 0; Range: 0-6; Units: /HPF; Status: F Test: MUCUS, URINE; Value: SMALL; Range: NEGATIVE; Status: F Test: HYALINE CAST, URINE AUTO; Value: 0; Range: 0-1; Units: /LPF; Status: F Lab Order: Urine Culture; SPEC'M 04/19/16 05:39 Test: URINE CULTURE; Value: <EXTERNAL COMMENT eCWMed> FULL REPORT IN LAB NOTES (eCW and Medent).; Status: F Test: URINE CULTURE; Value: URINE CULTURE RESULT NO GROWTH; Status: F Lab Order: Basic Metabolic Profile; SPEC'M 04/19/16 06:03 Test: GLUCOSE, FASTING; Value: 98; Range: 70-105; Units: MG/DL; Status: F Test: BLOOD UREA NITROGEN; Value: 14; Range: 7-18; Units: MG/DL; Status: F Test: CREATININE FOR GFR; Value: 1.04; Range: 0.70-1.30; Units: MG/DL; Status: F Test: GLOMERULAR FILTRATION RATE; Value: > 60.0; Range: >60; Status: F Test: SODIUM LEVEL; Value: 142; Range: 136-145; Units: MEQ/L; Status: F Test: POTASSIUM SERUM; Value: 3.9; Range: 3.5-5.1; Units: MEQ/L; Status: F Test: CHLORIDE LEVEL; Value: 106; Range: 98-107; Units: MEQ/L; Status: F Test: CARBON DIOXIDE LEVEL; Value: 28; Range: 21-32; Units: MEQ/L; Status: F Test: ANION GAP; Value: 8; Range: 8-16; Units: MEQ/L; Status: F Test: CALCIUM LEVEL; Value: 8.6; Range: 8.5-10.1; Units: MG/DL; Status: F Test Note: ; Units are mL/min/1.73 m2 Chronic Kidney Disease Staging per NKF: Stage I & II GFR >=60 Normal to Mildly Decreased Stage III GFR 30-59 Moderately Decreased Stage IV GFR 15-29 Severely Decreased Stage V GFR <15 Very Little GFR Left ESRD GFR <15 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 Lab Order: GC & Chlamydia Amplification; SPEC'M 04/19/16 05:39 Test: CHLAMYDIA DNA AMPLIFICATION; Value: POSITIVE; Range: NEGATIVE; Abnormal: Above high normal; Status: F Test: GC DNA AMPLIFICATION; Value: NEGATIVE; Range: NEGATIVE; Status: F Radiology Order: CT ABD & PELVIS: No Contrast Test: CT ABD & PELVIS: No Contrast REASON FOR EXAMINATION: pyelonephritis; ; CLINICAL HISTORY: Abdominal pain.; TECHNIQUE: Multiple axial, sagittal and coronal CT images were obtained through the abdomen and pelvi; s without administration of oral or IV contrast material.; COMMENTS:; The liver is of uniform attenuation without mass or defect. There is no intra or extrahepatic biliary; ductal dilatation. The spleen is normal. The gallbladder is within normal limits. The pancreas is of; normal contour and attenuation characteristics. There is no evidence of adrenal mass.; The kidneys are normal in size, shape and configuration. No renal or ureteral calculi are identified.; There is no hydroureter or hydronephrosis.; There is no evidence for appendicitis. There is no bowel wall thickening. No evidence for small or la; rge bowel obstruction. There is no evidence of abdominal ascites or lymphadenopathy.; There is no evidence of intrinsic or extrinsic bladder mass. There is no pelvic ascites or lymphadeno; pat.; Mild diffuse thickening of the bladder.; Images of the lung bases show no evidence of pleural or parenchymal mass. There are no pleural effusi; ons.; The bony structures are free of lytic or blastic lesions. Multilevel degenerative changes are seen in; volving the thoracolumbar spine.; Scattered calcifications are seen involving the aorta and major branches compatible with atherosclero; sis.; IMPRESSION:; Mild diffuse thickening of the bladder. Findings are suggestive of cystitis.; Thank you for your kind referral of this patient.; ; Outcome: 07:33 CT Study completed. Property :Personal belongings accompany Pt. ml6 08:06 Discharge ordered by Provider. pc 08:42 Discharge Assessment: patient administered narcotics - no. The following High Risk ml6 Discharge criteria are identified: None. Discharged to home ambulatory, with significant other. Condition: improved. Discharge instructions given to patient, Instructed on discharge instructions, follow up and referral plans. medication usage, safe sex practices, Demonstrated understanding of instructions, medications, Pt was receptive of discharge instructions/ teaching. Prescriptions given X 1. 08:43 Patient left the ED. ml6 Signatures: Dispatcher [employer] EDMS Pola Kaur MD MD pc Kevin King, Reg Reg lg Heri Leavitt RN RN ml6 Tereza Pal RN RN [facility] [place] Tori Cornell, Reg Reg hs2 Sara Hernández RN RN tm5 MTDD
--- NOTE | 2016-04-23 16:06 | EDDOCDS ---
Physician Documentation [facility] Name: Gene Gallegos Age: 20 yrs Sex: Male : 1995 Arrival Date: 04/19/2016 Time: 05:27 Bed 17 Private MD: Disposition: 04/19 08:01 Critical Care: Critical care not applicable. pc Disposition: 04/19/16 08:06 Discharged to Home/Self Care. Impression: Acute prostatitis. - Condition is Stable. - Discharge Instructions: Prostatitis. - Prescriptions for Doxycycline Monohydrate 100 mg Oral Tablet - take 1 tablet by ORAL route every 12 hours for 28 days; 56 tablet. - Medication Reconciliation, Local Pharmacy Hours form. - Follow up: Private Physician; When: Upon returning to your home town; Reason: Recheck today's complaints, Continuance of care. - Problem is an ongoing problem. - Symptoms are unchanged. HPI: 08:01 This 20 yrs old Male presents to ER via Walkin/Carried/Asstd with complaints of Urinary pc Problem. 08:01 The history is obtained from the patient. He has had dysuria for 2-3 weeks, without pc urethral discharge, hematuria, fevers or chills. He has low back pain at times but not daily or consistently. At their worst, the symptoms were mild. In the emergency department, the symptoms are unchanged. The patient has not experienced similar symptoms in the past. The patient has not recently seen a physician. Historical: - Allergies: no known allergies; - Home Meds: 1. none - PMHx: none; - The history from nurses notes was reviewed: and I agree with what is documented. - Social history: Smoking status: Patient uses tobacco products, current every day smoker. No barriers to communication noted, The patient speaks fluent Divehi. - Family history: Not pertinent. - : The pt / caregiver states he / she is not on anticoagulants. Home medication list is obtained from the patient. - Hospitalizations: : No recent hospitalization is reported. - Exposure Risk Screening:: None identified. - Immunization history:: All immunizations up-to-date. - Social history:: the patient smokes cigarettes the patient drinks alcohol. ROS: 08:01 All systems are negative except as listed. pc Exam: 08:01 General Appearance: no acute distress, alert. pc 08:01 Respiratory: no respiratory distress, normal breath sounds. 08:01 CVS: regular pulse rate, regular rhythm, normal S1 and S2, no murmurs, strong peripheral pulses. 08:01 Abdomen: soft, non-tender, no organomegaly, normal bowel sounds. 08:01 Abdomen: no masses appreciated, no hernias palpated with/without gravity or Valsalva Rectal exam: prostate is tender. 08:01 Back: normal inspection. 08:01 : bladder is non-distended, non-tender. 08:01 Extremities: The extremities have a grossly normal appearance. Vital Signs: 05:33 BP 133 / 59; Pulse 85; Resp 18; Temp 97.8(O); Pulse Ox 100% ; Weight 72.57 kg / 159.99 tm5 lbs; Height 6 ft. 0 in. (182.88 cm); Pain 0/10; 08:41 BP 128 / 61; Pulse 81; Resp 16; Temp 98.1(O); Pulse Ox 98% on R/A; Pain 0/10; ml6 05:33 Body Mass Index 21.70 (72.57 kg, 182.88 cm) tm5 MDM: 05:44 IV Saline Lock ordered. fg 05:44 Urine Culture Ordered. EDMS 05:45 Urinalysis Ordered. EDMS 05:45 Basic Metabolic Profile Ordered. EDMS 05:55 GC & Chlamydia Amplification Ordered. EDMS 05:55 HIV Screen, Nursing ordered. mlc 07:00 Urinalysis Reviewed. pc 07:00 Basic Metabolic Profile Reviewed. pc 07:02 CT ABD & PELVIS: No Contrast Ordered. EDMS 07:40 Financial registration complete. lg 08:01 Differential Diagnosis: dysuria r/o STD/prostatitis/UTI. Plan: labs, CT. Data reviewed: old medical records, vital signs, nurses notes, lab test results, all radiology studies and available results. Test interpretation: LAB - all labs as ordered have been reviewed, interpreted and considered in the overall management of the clinical presentation; interpreted by Radiologist and personally reviewed, Abdomen/Pelvis CT; cystitis suspected. The patient has been re-examined and re-evaluated. There is no appreciated change of the patient's symptoms at this time, or expected emergently . Disposition: The historical points, examination findings, and any diagnostic results supporting the provided diagnosis, were discussed with the patient or legal guardian. The need for outpatient follow up with the provider listed on their discharge instructions was discussed. They were encouraged to return to [facility], or the nearest ED, if symptoms worsen/persist, or for any other questions/concerns. 08:06 cefTRIAXone 250 mg IM once ordered. 08:06 Doxycycline 100 mg PO once ordered. 08:27 [facility] Payment Agreement was scanned into [employer] and attached to record. lg Administered Medications: 08:08 Drug: cefTRIAXone 250 mg [ceftriaxone 250 mg solution for injection (250 mg)] Route: ml6 IM; Site: left vastus lateralis; 08:43 Follow up: Response: No Adverse Reaction 6 08:10 Drug: Doxycycline 100 mg [doxycycline hyclate 100 mg tablet (1 tabs)] Route: PO; ml6 Addendum: 04/23/2016 16:04 Radiology Callback: A certified letter will be sent to the patient / guardian. sd1 Signatures: Dispatcher [employer] EDMS Pola Kaur MD MD Brooklynn Byrd MD MD sd1 Kevin King, Reg Reg Heri Leavitt, PETER RN ml6 Tereza Pal RN RN mlc Carina Gastelum MD MD Sara Hernández,RN RN tm5 The chart was reviewed and I authenticate all verbal orders and agree with the evaluation and treatment provided.Attachments: 04/19 08:27 [facility] Payment Agreement lg MTDD
--- NOTE | 2016-04-23 16:06 | EDDOCDS ---
Physician Documentation [facility] Name: Gene Gallegos Age: 20 yrs Sex: Male : 1995 Arrival Date: 04/19/2016 Time: 05:27 Bed 17 Private MD: Disposition: 04/19 08:01 Critical Care: Critical care not applicable. pc Disposition: 04/19/16 08:06 Discharged to Home/Self Care. Impression: Acute prostatitis. - Condition is Stable. - Discharge Instructions: Prostatitis. - Prescriptions for Doxycycline Monohydrate 100 mg Oral Tablet - take 1 tablet by ORAL route every 12 hours for 28 days; 56 tablet. - Medication Reconciliation, Local Pharmacy Hours form. - Follow up: Private Physician; When: Upon returning to your home town; Reason: Recheck today's complaints, Continuance of care. - Problem is an ongoing problem. - Symptoms are unchanged. HPI: 08:01 This 20 yrs old Male presents to ER via Walkin/Carried/Asstd with complaints of Urinary pc Problem. 08:01 The history is obtained from the patient. He has had dysuria for 2-3 weeks, without pc urethral discharge, hematuria, fevers or chills. He has low back pain at times but not daily or consistently. At their worst, the symptoms were mild. In the emergency department, the symptoms are unchanged. The patient has not experienced similar symptoms in the past. The patient has not recently seen a physician. Historical: - Allergies: no known allergies; - Home Meds: 1. none - PMHx: none; - The history from nurses notes was reviewed: and I agree with what is documented. - Social history: Smoking status: Patient uses tobacco products, current every day smoker. No barriers to communication noted, The patient speaks fluent Georgian. - Family history: Not pertinent. - : The pt / caregiver states he / she is not on anticoagulants. Home medication list is obtained from the patient. - Hospitalizations: : No recent hospitalization is reported. - Exposure Risk Screening:: None identified. - Immunization history:: All immunizations up-to-date. - Social history:: the patient smokes cigarettes the patient drinks alcohol. ROS: 08:01 All systems are negative except as listed. pc Exam: 08:01 General Appearance: no acute distress, alert. pc 08:01 Respiratory: no respiratory distress, normal breath sounds. 08:01 CVS: regular pulse rate, regular rhythm, normal S1 and S2, no murmurs, strong peripheral pulses. 08:01 Abdomen: soft, non-tender, no organomegaly, normal bowel sounds. 08:01 Abdomen: no masses appreciated, no hernias palpated with/without gravity or Valsalva Rectal exam: prostate is tender. 08:01 Back: normal inspection. 08:01 : bladder is non-distended, non-tender. 08:01 Extremities: The extremities have a grossly normal appearance. Vital Signs: 05:33 BP 133 / 59; Pulse 85; Resp 18; Temp 97.8(O); Pulse Ox 100% ; Weight 72.57 kg / 159.99 tm5 lbs; Height 6 ft. 0 in. (182.88 cm); Pain 0/10; 08:41 BP 128 / 61; Pulse 81; Resp 16; Temp 98.1(O); Pulse Ox 98% on R/A; Pain 0/10; ml6 05:33 Body Mass Index 21.70 (72.57 kg, 182.88 cm) tm5 MDM: 05:44 IV Saline Lock ordered. fg 05:44 Urine Culture Ordered. EDMS 05:45 Urinalysis Ordered. EDMS 05:45 Basic Metabolic Profile Ordered. EDMS 05:55 GC & Chlamydia Amplification Ordered. EDMS 05:55 HIV Screen, Nursing ordered. mlc 07:00 Urinalysis Reviewed. pc 07:00 Basic Metabolic Profile Reviewed. pc 07:02 CT ABD & PELVIS: No Contrast Ordered. EDMS 07:40 Financial registration complete. lg 08:01 Differential Diagnosis: dysuria r/o STD/prostatitis/UTI. Plan: labs, CT. Data reviewed: old medical records, vital signs, nurses notes, lab test results, all radiology studies and available results. Test interpretation: LAB - all labs as ordered have been reviewed, interpreted and considered in the overall management of the clinical presentation; interpreted by Radiologist and personally reviewed, Abdomen/Pelvis CT; cystitis suspected. The patient has been re-examined and re-evaluated. There is no appreciated change of the patient's symptoms at this time, or expected emergently . Disposition: The historical points, examination findings, and any diagnostic results supporting the provided diagnosis, were discussed with the patient or legal guardian. The need for outpatient follow up with the provider listed on their discharge instructions was discussed. They were encouraged to return to [facility], or the nearest ED, if symptoms worsen/persist, or for any other questions/concerns. 08:06 cefTRIAXone 250 mg IM once ordered. 08:06 Doxycycline 100 mg PO once ordered. 08:27 [facility] Payment Agreement was scanned into [employer] and attached to record. lg Administered Medications: 08:08 Drug: cefTRIAXone 250 mg [ceftriaxone 250 mg solution for injection (250 mg)] Route: ml6 IM; Site: left vastus lateralis; 08:43 Follow up: Response: No Adverse Reaction 6 08:10 Drug: Doxycycline 100 mg [doxycycline hyclate 100 mg tablet (1 tabs)] Route: PO; ml6 Addendum: 04/23/2016 16:04 Radiology Callback: A certified letter will be sent to the patient / guardian. sd1 Signatures: Dispatcher [employer] EDMS Pola Kaur MD MD Brooklynn Byrd MD MD sd1 Kevin King, Reg Reg Heri Leavitt, PETER RN ml6 Tereza Pal RN RN mlc Carina Gastelum MD MD Sara Hernández,RN RN tm5 The chart was reviewed and I authenticate all verbal orders and agree with the evaluation and treatment provided.Attachments: 04/19 08:27 [facility] Payment Agreement lg Chart Complete MTDD
--- NOTE | 2016-04-23 16:06 | EDDOCDS ---
Physician Documentation [facility] Name: Gene Gallegos Age: 20 yrs Sex: Male : 1995 Arrival Date: 04/19/2016 Time: 05:27 Bed 17 Private MD: Disposition: 04/19 08:01 Critical Care: Critical care not applicable. pc Disposition: 04/19/16 08:06 Discharged to Home/Self Care. Impression: Acute prostatitis. - Condition is Stable. - Discharge Instructions: Prostatitis. - Prescriptions for Doxycycline Monohydrate 100 mg Oral Tablet - take 1 tablet by ORAL route every 12 hours for 28 days; 56 tablet. - Medication Reconciliation, Local Pharmacy Hours form. - Follow up: Private Physician; When: Upon returning to your home town; Reason: Recheck today's complaints, Continuance of care. - Problem is an ongoing problem. - Symptoms are unchanged. HPI: 08:01 This 20 yrs old Male presents to ER via Walkin/Carried/Asstd with complaints of Urinary pc Problem. 08:01 The history is obtained from the patient. He has had dysuria for 2-3 weeks, without pc urethral discharge, hematuria, fevers or chills. He has low back pain at times but not daily or consistently. At their worst, the symptoms were mild. In the emergency department, the symptoms are unchanged. The patient has not experienced similar symptoms in the past. The patient has not recently seen a physician. Historical: - Allergies: no known allergies; - Home Meds: 1. none - PMHx: none; - The history from nurses notes was reviewed: and I agree with what is documented. - Social history: Smoking status: Patient uses tobacco products, current every day smoker. No barriers to communication noted, The patient speaks fluent Lithuanian. - Family history: Not pertinent. - : The pt / caregiver states he / she is not on anticoagulants. Home medication list is obtained from the patient. - Hospitalizations: : No recent hospitalization is reported. - Exposure Risk Screening:: None identified. - Immunization history:: All immunizations up-to-date. - Social history:: the patient smokes cigarettes the patient drinks alcohol. ROS: 08:01 All systems are negative except as listed. pc Exam: 08:01 General Appearance: no acute distress, alert. pc 08:01 Respiratory: no respiratory distress, normal breath sounds. 08:01 CVS: regular pulse rate, regular rhythm, normal S1 and S2, no murmurs, strong peripheral pulses. 08:01 Abdomen: soft, non-tender, no organomegaly, normal bowel sounds. 08:01 Abdomen: no masses appreciated, no hernias palpated with/without gravity or Valsalva Rectal exam: prostate is tender. 08:01 Back: normal inspection. 08:01 : bladder is non-distended, non-tender. 08:01 Extremities: The extremities have a grossly normal appearance. Vital Signs: 05:33 BP 133 / 59; Pulse 85; Resp 18; Temp 97.8(O); Pulse Ox 100% ; Weight 72.57 kg / 159.99 tm5 lbs; Height 6 ft. 0 in. (182.88 cm); Pain 0/10; 08:41 BP 128 / 61; Pulse 81; Resp 16; Temp 98.1(O); Pulse Ox 98% on R/A; Pain 0/10; ml6 05:33 Body Mass Index 21.70 (72.57 kg, 182.88 cm) tm5 MDM: 05:44 IV Saline Lock ordered. fg 05:44 Urine Culture Ordered. EDMS 05:45 Urinalysis Ordered. EDMS 05:45 Basic Metabolic Profile Ordered. EDMS 05:55 GC & Chlamydia Amplification Ordered. EDMS 05:55 HIV Screen, Nursing ordered. mlc 07:00 Urinalysis Reviewed. pc 07:00 Basic Metabolic Profile Reviewed. pc 07:02 CT ABD & PELVIS: No Contrast Ordered. EDMS 07:40 Financial registration complete. lg 08:01 Differential Diagnosis: dysuria r/o STD/prostatitis/UTI. Plan: labs, CT. Data reviewed: old medical records, vital signs, nurses notes, lab test results, all radiology studies and available results. Test interpretation: LAB - all labs as ordered have been reviewed, interpreted and considered in the overall management of the clinical presentation; interpreted by Radiologist and personally reviewed, Abdomen/Pelvis CT; cystitis suspected. The patient has been re-examined and re-evaluated. There is no appreciated change of the patient's symptoms at this time, or expected emergently . Disposition: The historical points, examination findings, and any diagnostic results supporting the provided diagnosis, were discussed with the patient or legal guardian. The need for outpatient follow up with the provider listed on their discharge instructions was discussed. They were encouraged to return to [facility], or the nearest ED, if symptoms worsen/persist, or for any other questions/concerns. 08:06 cefTRIAXone 250 mg IM once ordered. 08:06 Doxycycline 100 mg PO once ordered. 08:27 [facility] Payment Agreement was scanned into [employer] and attached to record. lg Administered Medications: 08:08 Drug: cefTRIAXone 250 mg [ceftriaxone 250 mg solution for injection (250 mg)] Route: ml6 IM; Site: left vastus lateralis; 08:43 Follow up: Response: No Adverse Reaction 6 08:10 Drug: Doxycycline 100 mg [doxycycline hyclate 100 mg tablet (1 tabs)] Route: PO; ml6 Addendum: 04/23/2016 16:04 Radiology Callback: A certified letter will be sent to the patient / guardian. sd1 Signatures: Dispatcher [employer] EDMS Pola Kaur MD MD Brooklynn Byrd MD MD sd1 Kevin King, Reg Reg Heri Leavitt, PETER RN ml6 Tereza Pal RN RN mlc Carina Gastelum MD MD Sara Hernández,RN RN tm5 The chart was reviewed and I authenticate all verbal orders and agree with the evaluation and treatment provided.Attachments: 04/19 08:27 [facility] Payment Agreement lg Chart Complete MTDD
--- NOTE | 2016-04-23 16:06 | EDDOCDS ---
Physician Documentation [facility] Name: Gene Gallegos Age: 20 yrs Sex: Male : 1995 Arrival Date: 04/19/2016 Time: 05:27 Bed 17 Private MD: Disposition: 04/19 08:01 Critical Care: Critical care not applicable. pc Disposition: 04/19/16 08:06 Discharged to Home/Self Care. Impression: Acute prostatitis. - Condition is Stable. - Discharge Instructions: Prostatitis. - Prescriptions for Doxycycline Monohydrate 100 mg Oral Tablet - take 1 tablet by ORAL route every 12 hours for 28 days; 56 tablet. - Medication Reconciliation, Local Pharmacy Hours form. - Follow up: Private Physician; When: Upon returning to your home town; Reason: Recheck today's complaints, Continuance of care. - Problem is an ongoing problem. - Symptoms are unchanged. HPI: 08:01 This 20 yrs old Male presents to ER via Walkin/Carried/Asstd with complaints of Urinary pc Problem. 08:01 The history is obtained from the patient. He has had dysuria for 2-3 weeks, without pc urethral discharge, hematuria, fevers or chills. He has low back pain at times but not daily or consistently. At their worst, the symptoms were mild. In the emergency department, the symptoms are unchanged. The patient has not experienced similar symptoms in the past. The patient has not recently seen a physician. Historical: - Allergies: no known allergies; - Home Meds: 1. none - PMHx: none; - The history from nurses notes was reviewed: and I agree with what is documented. - Social history: Smoking status: Patient uses tobacco products, current every day smoker. No barriers to communication noted, The patient speaks fluent Setswana. - Family history: Not pertinent. - : The pt / caregiver states he / she is not on anticoagulants. Home medication list is obtained from the patient. - Hospitalizations: : No recent hospitalization is reported. - Exposure Risk Screening:: None identified. - Immunization history:: All immunizations up-to-date. - Social history:: the patient smokes cigarettes the patient drinks alcohol. ROS: 08:01 All systems are negative except as listed. pc Exam: 08:01 General Appearance: no acute distress, alert. pc 08:01 Respiratory: no respiratory distress, normal breath sounds. 08:01 CVS: regular pulse rate, regular rhythm, normal S1 and S2, no murmurs, strong peripheral pulses. 08:01 Abdomen: soft, non-tender, no organomegaly, normal bowel sounds. 08:01 Abdomen: no masses appreciated, no hernias palpated with/without gravity or Valsalva Rectal exam: prostate is tender. 08:01 Back: normal inspection. 08:01 : bladder is non-distended, non-tender. 08:01 Extremities: The extremities have a grossly normal appearance. Vital Signs: 05:33 BP 133 / 59; Pulse 85; Resp 18; Temp 97.8(O); Pulse Ox 100% ; Weight 72.57 kg / 159.99 tm5 lbs; Height 6 ft. 0 in. (182.88 cm); Pain 0/10; 08:41 BP 128 / 61; Pulse 81; Resp 16; Temp 98.1(O); Pulse Ox 98% on R/A; Pain 0/10; ml6 05:33 Body Mass Index 21.70 (72.57 kg, 182.88 cm) tm5 MDM: 05:44 IV Saline Lock ordered. fg 05:44 Urine Culture Ordered. EDMS 05:45 Urinalysis Ordered. EDMS 05:45 Basic Metabolic Profile Ordered. EDMS 05:55 GC & Chlamydia Amplification Ordered. EDMS 05:55 HIV Screen, Nursing ordered. mlc 07:00 Urinalysis Reviewed. pc 07:00 Basic Metabolic Profile Reviewed. pc 07:02 CT ABD & PELVIS: No Contrast Ordered. EDMS 07:40 Financial registration complete. lg 08:01 Differential Diagnosis: dysuria r/o STD/prostatitis/UTI. Plan: labs, CT. Data reviewed: old medical records, vital signs, nurses notes, lab test results, all radiology studies and available results. Test interpretation: LAB - all labs as ordered have been reviewed, interpreted and considered in the overall management of the clinical presentation; interpreted by Radiologist and personally reviewed, Abdomen/Pelvis CT; cystitis suspected. The patient has been re-examined and re-evaluated. There is no appreciated change of the patient's symptoms at this time, or expected emergently . Disposition: The historical points, examination findings, and any diagnostic results supporting the provided diagnosis, were discussed with the patient or legal guardian. The need for outpatient follow up with the provider listed on their discharge instructions was discussed. They were encouraged to return to [facility], or the nearest ED, if symptoms worsen/persist, or for any other questions/concerns. 08:06 cefTRIAXone 250 mg IM once ordered. 08:06 Doxycycline 100 mg PO once ordered. 08:27 [facility] Payment Agreement was scanned into [employer] and attached to record. lg Administered Medications: 08:08 Drug: cefTRIAXone 250 mg [ceftriaxone 250 mg solution for injection (250 mg)] Route: ml6 IM; Site: left vastus lateralis; 08:43 Follow up: Response: No Adverse Reaction 6 08:10 Drug: Doxycycline 100 mg [doxycycline hyclate 100 mg tablet (1 tabs)] Route: PO; ml6 Addendum: 04/23/2016 16:04 Radiology Callback: A certified letter will be sent to the patient / guardian. sd1 Signatures: Dispatcher [employer] EDMS Pola Kaur MD MD Brooklynn Byrd MD MD sd1 Kevin King, Reg Reg Heri Leavitt, PETER RN ml6 Tereza Pal RN RN mlc Carina Gastelum MD MD Sara Hernández,RN RN tm5 The chart was reviewed and I authenticate all verbal orders and agree with the evaluation and treatment provided.Attachments: 04/19 08:27 [facility] Payment Agreement lg MTDD
--- NOTE | 2016-04-23 16:06 | EDDOCDS ---
Nurse's Notes [facility] Name: Gene Gallegos Age: 20 yrs Sex: Male : 1995 Arrival Date: 04/19/2016 Time: 05:27 Bed 17 Private MD: Diagnosis: Acute prostatitis Presentation: 04/19 05:31 Presenting complaint: Patient states: per pt for the past few weeks now he has had the tm5 urge to use the bathroom, he has noted blood in his urine also, has had lower back pain also. Adult Sepsis Screening: The patient does not have new or worsening altered mentation. Patient's respiratory rate is less than 22. Systolic blood pressure is greater than 100. Patient has a qSOFA score of 0- Negative Sepsis Screen. Suicide/Homicide risk assessment- the patient denies having any suicidal and/or homicidal ideations and does not present with any other emotional, behavioral or mental health complaints. Status: Patient is not a appliance service representative or dependent. Transition of care: patient was not received from another setting of care. 05:31 Acuity: TRANG Level 3 tm5 05:31 Method Of Arrival: Walkin/Carried/Asstd tm5 Triage Assessment: 05:33 General: Appears in no apparent distress, Behavior is appropriate for age, cooperative. tm5 Pain: Denies pain. Pt Declines HIV testing. Neurological: No deficits noted. Respiratory: Airway is patent Respiratory effort is even, unlabored, Respiratory pattern is regular, symmetrical. Derm: Skin is pink, warm & dry. Historical: - Allergies: no known allergies; - Home Meds: 1. none - PMHx: none; - The history from nurses notes was reviewed: and I agree with what is documented. - Social history: Smoking status: Patient uses tobacco products, current every day smoker. No barriers to communication noted, The patient speaks fluent Thai. - Family history: Not pertinent. - : The pt / caregiver states he / she is not on anticoagulants. Home medication list is obtained from the patient. - Hospitalizations: : No recent hospitalization is reported. - Exposure Risk Screening:: None identified. - Immunization history:: All immunizations up-to-date. - Social history:: the patient smokes cigarettes the patient drinks alcohol. Screenin:35 Screening information is obtained from the patient. Fall risk: No risks identified. tm5 Assistance ADL's: requires no assistance with activities of daily living. Abuse/DV Screen: The patient / caregiver reports he/she is: not in a situation that causes fear, pain or injury. Nutritional screening: No deficits noted. Advance Directives: Currently, there is no health care proxy. There is no active DNR order. home support is adequate. Assessment: 05:56 General: Appears in no apparent distress, comfortable, Behavior is cooperative. Pain: mlc Denies pain. Neurological: Level of Consciousness is awake, alert, obeys commands, Oriented to person, place, time. Respiratory: Airway is patent Respiratory effort is even, unlabored, Respiratory pattern is regular. GI: Abdomen is flat, Bowel sounds present X 4 quads. Abd is soft X 4 quads Denies nausea. : Reports urgency since 3 weeks pt reports itching "internally" between testicles and shaft, pt denies discharge/rash. 07:20 General: Appears in no apparent distress, comfortable, Behavior is appropriate for age, ml6 cooperative. Pain: Denies pain. Neurological: No deficits noted. Level of Consciousness is awake, alert, Oriented to person, place, time. Cardiovascular: No deficits noted. Capillary refill < 3 seconds is brisk in bilateral fingers toes. Respiratory: No deficits noted. Airway is patent Respiratory effort is even, unlabored, Respiratory pattern is regular, symmetrical. GI: Abdomen is flat, non- distended Bowel sounds present X 4 quads. Abd is soft and non tender X 4 quads. : Reports urgency. 08:20 Reassessment: Patient appears in no apparent distress at this time. Patient denies pain ml6 at this time. Patient states feeling better. Patient states symptoms have improved. 08:41 General: Appears in no apparent distress, comfortable, Behavior is appropriate for age, ml6 cooperative. Pain: Denies pain. Neurological: No deficits noted. Level of Consciousness is awake, alert, Oriented to person, place, time. Cardiovascular: No deficits noted. Capillary refill < 3 seconds is brisk in bilateral fingers toes. Respiratory: No deficits noted. Airway is patent Respiratory effort is even, unlabored, Respiratory pattern is regular, symmetrical. GI: No deficits noted. Vital Signs: 05:33 BP 133 / 59; Pulse 85; Resp 18; Temp 97.8(O); Pulse Ox 100% ; Weight 72.57 kg; Height 6 tm5 ft. 0 in. (182.88 cm); Pain 0/10; 08:41 BP 128 / 61; Pulse 81; Resp 16; Temp 98.1(O); Pulse Ox 98% on R/A; Pain 0/10; ml6 05:33 Body Mass Index 21.70 (72.57 kg, 182.88 cm) tm5 Vitals: 05:33 Log In Time: April 19, 2016 at 05:34. tm5 06:14 HIV Screen Result: Negative. [facility] ED Course: 05:29 Patient visited by Tori Cornell Reg. hs2 05:29 Patient moved to Waiting hs2 05:33 Triage Initiated tm5 05:33 Family accompanied patient. tm5 05:35 Tereza Pal RN is Primary Nurse. tm5 05:35 Patient moved to 17 tm5 05:55 GC & Chlamydia Amplification Sent. mlc 05:55 Urine Culture Sent. mlc 05:55 Urinalysis Sent. [facility] 05:58 Patient visited by Tereza Pal RN. [facility] 06:04 Basic Metabolic Profile Sent. [facility] 06:05 Inserted saline lock: 20 gauge in right forearm and blood collected. The patient mlc tolerated the procedure well. 06:15 Patient visited by Tereza Pal RN. mlc 06:58 Heri Leavitt, PETER is Primary Nurse. ml6 06:59 Patient visited by Heri Leavitt RN. ml6 06:59 Pola Kaur MD is Attending Physician. pc 07:18 Patient visited by Pola Kaur MD. pc 07:20 The patient / caregiver is instructed regarding the plan of care and ED course. ml6 07:54 Patient visited by Heri Leavitt RN. ml6 08:27 [facility] Payment Agreement was scanned into [employer] and attached to record. lg 08:33 CT ABD & PELVIS: No Contrast Returned. EDMS 08:42 Discontinued IV bleeding controlled, pressure dressing applied, No redness/swelling at ml6 site. No procedures done that require assistance. Administered Medications: 08:08 Drug: cefTRIAXone 250 mg [ceftriaxone 250 mg solution for injection (250 mg)] Route: ml6 IM; Site: left vastus lateralis; 08:43 Follow up: Response: No Adverse Reaction ml6 08:10 Drug: Doxycycline 100 mg [doxycycline hyclate 100 mg tablet (1 tabs)] Route: PO; ml6 Order Results: Lab Order: Urinalysis; SPEC'M 04/19/16 05:39 Test: APPEARANCE, URINE; Value: HAZY; Range: CLEAR; Status: F Test: COLOR, URINE; Value: YELLOW; Range: YELLOW; Status: F Test: PH,URINE; Value: 5.0; Range: 5.0-9.0; Units: UNITS; Status: F Test: SPECIFIC GRAVITY URINE AUTO; Value: 1.019; Range: 1.002-1.035; Status: F Test: PROTEIN, URINE AUTO; Value: NEGATIVE; Range: NEGATIVE; Units: mg/dL; Status: F Test: GLUCOSE, URINE (UA) AUTO; Value: NEGATIVE; Range: NEGATIVE; Units: mg/dL; Status: F Test: KETONE, URINE AUTO; Value: TRACE; Range: NEGATIVE; Abnormal: Above high normal; Units: mg/dL; Status: F Test: UROBILINOGEN, URINE AUTO; Value: 0.2; Range: 0.0-2.0; Units: mg/dL; Status: F Test: BILIRUBIN, URINE AUTO; Value: NEGATIVE; Range: NEGATIVE; Status: F Test: NITRITE, URINE AUTO; Value: NEGATIVE; Range: NEGATIVE; Status: F Test: LEUKOCYTE ESTERASE, URINE AUTO; Value: 2+; Range: NEGATIVE; Abnormal: Above high normal; Status: F Test: BLOOD, URINE BLOOD; Value: NEGATIVE; Range: NEGATIVE; Status: F Test: WBC, URINE AUTO; Value: 158; Range: 0-3; Abnormal: Above high normal; Units: /HPF; Status: F Test: RBC, URINE AUTO; Value: 7; Range: 0-3; Abnormal: Above high normal; Units: /HPF; Status: F Test: BACTERIA, URINE AUTO; Value: NEGATIVE; Range: NEGATIVE; Status: F Test: SQUAMOUS EPITHELIAL CELL UR AU; Value: 0; Range: 0-6; Units: /HPF; Status: F Test: MUCUS, URINE; Value: SMALL; Range: NEGATIVE; Status: F Test: HYALINE CAST, URINE AUTO; Value: 0; Range: 0-1; Units: /LPF; Status: F Lab Order: Urine Culture; SPEC'M 04/19/16 05:39 Test: URINE CULTURE; Value: <EXTERNAL COMMENT eCWMed> FULL REPORT IN LAB NOTES (eCW and Medent).; Status: F Test: URINE CULTURE; Value: URINE CULTURE RESULT NO GROWTH; Status: F Lab Order: Basic Metabolic Profile; SPEC'M 04/19/16 06:03 Test: GLUCOSE, FASTING; Value: 98; Range: 70-105; Units: MG/DL; Status: F Test: BLOOD UREA NITROGEN; Value: 14; Range: 7-18; Units: MG/DL; Status: F Test: CREATININE FOR GFR; Value: 1.04; Range: 0.70-1.30; Units: MG/DL; Status: F Test: GLOMERULAR FILTRATION RATE; Value: > 60.0; Range: >60; Status: F Test: SODIUM LEVEL; Value: 142; Range: 136-145; Units: MEQ/L; Status: F Test: POTASSIUM SERUM; Value: 3.9; Range: 3.5-5.1; Units: MEQ/L; Status: F Test: CHLORIDE LEVEL; Value: 106; Range: 98-107; Units: MEQ/L; Status: F Test: CARBON DIOXIDE LEVEL; Value: 28; Range: 21-32; Units: MEQ/L; Status: F Test: ANION GAP; Value: 8; Range: 8-16; Units: MEQ/L; Status: F Test: CALCIUM LEVEL; Value: 8.6; Range: 8.5-10.1; Units: MG/DL; Status: F Test Note: ; Units are mL/min/1.73 m2 Chronic Kidney Disease Staging per NKF: Stage I & II GFR >=60 Normal to Mildly Decreased Stage III GFR 30-59 Moderately Decreased Stage IV GFR 15-29 Severely Decreased Stage V GFR <15 Very Little GFR Left ESRD GFR <15 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 Lab Order: GC & Chlamydia Amplification; SPEC'M 04/19/16 05:39 Test: CHLAMYDIA DNA AMPLIFICATION; Value: POSITIVE; Range: NEGATIVE; Abnormal: Above high normal; Status: F Test: GC DNA AMPLIFICATION; Value: NEGATIVE; Range: NEGATIVE; Status: F Radiology Order: CT ABD & PELVIS: No Contrast Test: CT ABD & PELVIS: No Contrast REASON FOR EXAMINATION: pyelonephritis; ; CLINICAL HISTORY: Abdominal pain.; TECHNIQUE: Multiple axial, sagittal and coronal CT images were obtained through the abdomen and pelvi; s without administration of oral or IV contrast material.; COMMENTS:; The liver is of uniform attenuation without mass or defect. There is no intra or extrahepatic biliary; ductal dilatation. The spleen is normal. The gallbladder is within normal limits. The pancreas is of; normal contour and attenuation characteristics. There is no evidence of adrenal mass.; The kidneys are normal in size, shape and configuration. No renal or ureteral calculi are identified.; There is no hydroureter or hydronephrosis.; There is no evidence for appendicitis. There is no bowel wall thickening. No evidence for small or la; rge bowel obstruction. There is no evidence of abdominal ascites or lymphadenopathy.; There is no evidence of intrinsic or extrinsic bladder mass. There is no pelvic ascites or lymphadeno; pat.; Mild diffuse thickening of the bladder.; Images of the lung bases show no evidence of pleural or parenchymal mass. There are no pleural effusi; ons.; The bony structures are free of lytic or blastic lesions. Multilevel degenerative changes are seen in; volving the thoracolumbar spine.; Scattered calcifications are seen involving the aorta and major branches compatible with atherosclero; sis.; IMPRESSION:; Mild diffuse thickening of the bladder. Findings are suggestive of cystitis.; Thank you for your kind referral of this patient.; ; Outcome: 07:33 CT Study completed. Property :Personal belongings accompany Pt. ml6 08:06 Discharge ordered by Provider. pc 08:42 Discharge Assessment: patient administered narcotics - no. The following High Risk ml6 Discharge criteria are identified: None. Discharged to home ambulatory, with significant other. Condition: improved. Discharge instructions given to patient, Instructed on discharge instructions, follow up and referral plans. medication usage, safe sex practices, Demonstrated understanding of instructions, medications, Pt was receptive of discharge instructions/ teaching. Prescriptions given X 1. 08:43 Patient left the ED. ml6 Signatures: Dispatcher [employer] EDMS Pola Kaur MD MD pc Kevin King, Reg Reg lg Heri Leavitt RN RN ml6 Tereza Pal RN RN [facility] Tori Cornell, Reg Reg hs2 Sara Hernández RN RN tm5 Chart Complete MTDD
== END 2016-04-19 08:23 | disposition home or self-care (01) ==
LOC: M ED 05:27
DX: N41.0 Acute prostatitis (principal); F17.200 Nicotine dependence, unspecified, uncomplicated
CPT/HCPCS: 36415; 74176; 80048; 81001; 87086; 87491; 87591; 96372; 99284; J0696